=== PATIENT | female | born 1955 | race Caucasian/White ===

== ENCOUNTER 2023-07-09 13:01 | Emergency (ER) | payer OTHER, SELFPAY ==
[2023-07-09 13:02] VITALS: BP 155/84; PULSE 86; RESP 18; TEMP 35.8; O2SAT 100
--- NOTE | 2023-07-09 13:13 | CT_ITS ---
STUDY: CT ABDOMEN AND PELVIS WITHOUT CONTRAST REASON FOR EXAM: Female, 68 years old. Left flank pain. RADIATION DOSAGE (If Supplied By Facility): CTDIvol = ( 22.71 ) mGy, DLP = ( 1130.12 ) mGycm TECHNIQUE: Transaxial images were obtained from the dome of the diaphragm to the symphysis pubis without oral contrast, and without intravenous contrast. Sagittal and coronal images were reconstructed. Individualized dose optimization techniques were used for this CT. COMPARISON: None. FINDINGS: Mild degree of increased markings at the right lung base suggestive of atelectasis and/or scarring. Coronary artery calcification. Normal liver. There are surgical clips in the gallbladder fossa consistent with a prior cholecystectomy. Normal spleen. Normal pancreas. Normal bilateral adrenal glands. There are nonobstructive right intrarenal calculi. The largest is in the lower pole and measures 7.6 mm. There is evidence of a 4.5 mm calculus in the right ureteropelvic junction. Mild hydronephrosis. Nonobstructive left intrarenal calculi. The largest is in the lower pole and measures 15.5 mm. There is a small hiatal hernia. Normal small intestine. There are multiple colonic diverticula consistent with diverticulosis. The appendix is visualized and appears normal. Normal abdominal aorta. Normal inferior vena cava. Normal retroperitoneum. Normal urinary bladder. Normal abdominal wall. There are degenerative changes of the visualized lumbar spine. CT/Abdomen/Pelvis without Cont IMPRESSION: Nonobstructive bilateral intrarenal calculi. 4.5 mm calculus at the right ureteropelvic junction causing mild right hydronephrosis. Electronically Signed: Elbert Dior MD at 14:29 EDT ,
--- NOTE | 2023-07-09 13:14 | ED.VIS.GI ---
HPI HPI - GI History of Present Illness Chief Complaint: Flank Pain Detail of Chief Complaint: Sudden onset left flank pain 3 hours ago. Informant: patient Abdominal Pain/Flank Pain Onset: Today and Hours Context: Sudden Onset Timing: Continuous Location: Left Flank Current Severity: Moderate Maximum Severity: Severe Worsened by: Nothing Nausea/Vomiting/Emesis GI Symptom: Positive for Nausea; Negative for Vomiting Onset: Today Diarrhea/Melena/Hematochezia GI Symptom: Negative for Diarrhea, Melena or Hematochezia Associated Symptoms Associated Symptoms: Negative for Dysuria, Frequency or Hematuria Narrative Narrative: 68-year-old female sudden onset left flank pain about 3 hours ago. Now is wrapping around her left groin. History of a prior kidney stone which she said felt the same. Denies prior abdominal surgery. Denies dysuria or fever. Prior similar symptoms: Yes Recent Illness/Hospitalization: No PFSH PFSH Medical History (Updated 07/09/23 @ 13:36 by Antonietta Leyva) Anemia Breast cancer Depression Obesity Home Medications aspirin 325 mg tablet (Yoana Aspirin) 325 mg PO DAILY PRN pain 07/09/23 [History Last Taken Unknown] guaifenesin 1,200 mg tablet, extended release 12 hr (Mucinex) 1,200 mg PO Q12H 07/09/23 [History Last Taken Unknown] hydrocodone 5 mg-acetaminophen 300 mg tablet 1 tab PO Q4H PRN pain 2 days #12 tabs 07/09/23 [Rx Last Taken Unknown] Allergy/AdvReac Type Severity Reaction Status Date / Time minocycline Allergy Severe Anaphylaxis Verified 07/09/23 13:06 tetracycline Allergy Severe Anaphylaxis Verified 07/09/23 13:06 amoxicillin [From Augmentin] Allergy Intermediate Diarrhea Verified 07/09/23 13:06 clavulanic acid Allergy Intermediate Diarrhea Verified 07/09/23 13:06 [From Augmentin] diclofenac Allergy Intermediate Swelling Verified 07/09/23 13:06 naproxen Allergy Intermediate Hives Verified 07/09/23 13:06 oxaprozin [From Daypro] Allergy Intermediate dyspepsia Verified 07/09/23 13:06 piroxicam [From Feldene] Allergy Intermediate Swelling Verified 07/09/23 13:06 vicryl suture Allergy Intermediate infection Uncoded 07/09/23 13:06 Family History (Updated 07/09/23 @ 13:36 by Antonietta Leyva) Father Myocardial infarction Brother Bladder cancer Surgical History (Updated 07/09/23 @ 13:36 by Antonietta Leyva) Hx of cholecystectomy Previous back surgery Social History (Updated 07/09/23 @ 13:36 by Antonietta Leyva) household members: spouse housing: house current occupational status: employed Smoking Status: Never smoker ROS ROS ED ROS Narrative No flank pain. Nausea. Review of Systems ROS Unobtainable: Denies due to encephalopathy Constitutional Constitutional ED: Denies chills or fever(s) ENT ENT ED: Denies ear pain Cardiovascular Cardiovascular: Denies chest pain or palpitations Respiratory/Chest Respiratory/Chest: Denies cough or dyspnea Gastrointestinal Gastrointestinal: Reports abdominal pain and nausea; Denies constipation, diarrhea, melena or vomiting Genitourinary Genitourinary ED: Denies dysuria, hematuria or urinary frequency Musculoskeletal Musculoskeletal: Reports back pain; Denies arthralgias Integumentary Denies abscess or Abrasions Neurologic Neurologic: Denies headache(s) Psychiatric Psychiatric: Denies anxiety Endocrine Endocrinology: Denies polydipsia Hematologic/Lymphatic Hematologic/Lymphatic: Denies easy bleeding Allergic/Immunologic Allergic/Immunologic ED: Denies mouth swelling or tongue swelling EXAM Physical Exam Narrative Exam Narrative: 60-year-old female left flank pain. Complain pain. Vital signs stable afebrile. Does not look septic toxic. Other than pains in no distress. at bedside. H EENT exam unremarkable. Lungs clear. Heart regular rhythm no murmur rate about 85. Chest wall nontender. Abdomen soft nontender. No reproducible tenderness. No peritoneal signs. No pulsatile mass. Back nontender. Moving all 4 extremities. She is awake and alert. No focal motor deficits. Answering questions following commands. Const Vital Signs: 07/09/23 13:02 07/09/23 13:28 07/09/23 14:32 Temperature 96.5 F L Temperature Source Temporal Pulse Rate 86 75 87 Respiratory Rate 18 15 23 H Blood Pressure 155/84 H 155/73 H 154/79 H Blood Pressure Mean 107 100 104 Pulse Ox 100 95 96 Oxygen Delivery Method Room Air Room Air Room Air 07/09/23 14:45 Temperature Temperature Source Pulse Rate 87 Respiratory Rate 16 Blood Pressure 137/121 H Blood Pressure Mean 126 Pulse Ox 94 Oxygen Delivery Method Room Air Positive well nourished and well developed; Negative for cachectic or contractures General Appearance ED: well developed and NAD; Negative for cachectic, contractures or pallor Nutritional Appearance: Negative for cachectic HEENT Reports moist mucous membranes; Denies dry mucous membranes normocephalic and atraumatic; Negative for trauma or tenderness Mouth ED: No dry mucous membranes Mouth: No dry mucous membranes Eyes PERRL and EOMs intact bilaterally General Eye ED: Negative for pale conjunctiva or scleral icterus Neck no lymphadenopathy, supple and no JVD General: Negative for tenderness Carotids: Negative for other Lymph Lymphatic: Negative for other Resp normal respiratory effort and clear to auscultation bilaterally Effort and Inspection: Negative for respiratory distress Auscultation: Negative for rales, rhonchi or wheezes Cardio regular rate, regular rhythm, S1 normal heart sound, S2 normal heart sound and no murmurs Rate: Negative for bradycardia or tachycardic Rhythm: Negative for abnormal rhythm GI non-tender, non-distended and no masses Inspection: Negative for abdominal distention Auscultation: normoactive bowel sounds Palpation: soft; Negative for tender, guarding or rigid Back/Spine no CVA tenderness General Back: Negative for CVA tenderness Cervical Spine: Negative for cervical spine tenderness Thoracic Spine / Upper Back: Negative for thoracic spinal tenderness Lumbar Spine / Lower Back: Negative for lumbar spinal tenderness Coccyx: Negative for other Extremity full ROM General Extremety ED: Negative for edema or tenderness General Extremity: Negative for edema Neuro CN's II-XII intact bilaterally and moves all extremities Sensorium / Orientation: alert, oriented to person, oriented to place and oriented to time; Negative for orientation impaired, confused, lethargic or stuporous Motor Exam: strength 5/5 throughout Psych mental status grossly normal and thought process normal Appearance: Negative for other Attitude: No agitated Mood & Affect: Negative for depressed, anxious or tearful Skin no wounds General Skin Exam: Negative for jaundice or pallor Lesions: no lesions Rashes: no rashes Trauma: Negative for abrasion Image ED - Body Diagram Man: 1. Left flank pain. Not reproducible. MDM MDM MDM Narrative Medical decision making narrative: 68-year-old female with sudden onset left flank pain about 3 hours ago. History of a prior kidney stone. Exam benign. There is no reproducible abdominal pain. She will be treated with IV Dilaudid for pain and Zofran for nausea. CAT scan labs and urinalysis to be obtained. Repeat exam patient doing well at 3:18 PM. She has had a total of 2 mg of Dilaudid. Initially 1 mg and then 2 half milligrams doses. She is resting more comfortably. We discussed her test result so far and her CAT scan. CAT scan shows bilateral intrarenal stones but no acute stone causing her pain. She had not given us a urine sample yet she is trying to produce 1 at this time. Patient doing well at 3:57 PM. Urinalysis does not show any signs of infection just blood. The CAT scan does not show an acute ureteral calculi. She may have already passed it in her bladder. She will be discharged home. With patient. History & Record Review Discussion w/independent historian: Patient Additional record(s) reviewed:: No prior records Lab Data Attestation: I reviewed the patient's lab results. Lab results narrative: CBC unremarkable. White count of 5. H&H 12 and 42. Platelets 238. Electrolytes show a gap of 5. Normal BUN and creatinine of fifteen 0.7. Glucose 119. CAT scan shows bilateral intrarenal stones. I discussed specifically with the radiologist that he did not see anything acute on the left where she is having her pain. Urinalysis shows 10-25 red cells. No white cells. 1+ bacteria no nitrates. Labs: Laboratory Results - last 24 hr 07/09/23 07/09/23 13:27 15:20 WBC 5.5 RBC 4.24 Hgb 12.7 Hct 42.0 MCV 99.1 H MCH 30.0 MCHC 30.2 L RDW Std Deviation 49.9 H RDW Coeff of Mina 13.8 Plt Count 238 MPV 9.2 Immature Gran % (Auto) 0.200 Neut % (Auto) 68.9 Lymph % (Auto) 17.7 L [place] % (Auto) 7.7 Eos % (Auto) 4.2 Baso % (Auto) 1.3 H Absolute Neuts (auto) 3.8 Absolute Lymphs (auto) 0.97 Nucleated RBC % 0 Sodium 138 Potassium 4.3 Chloride 108 H Carbon Dioxide 25.0 Anion Gap 5 BUN 15 Creatinine 0.74 Estim Creat Clear Calc 52.36 Est GFR (MDRD) Af Amer 101 Est GFR (MDRD) Non-Af 83 BUN/Creatinine Ratio 20.4 H Glucose 119 H Calcium 8.6 Urine Color Yellow Urine Clarity Sl. Cloudy Urine pH 7.0 Ur Specific [place] 1.010 Urine Protein Negative Urine Glucose (UA) Normal Urine Ketones 15 H Urine Occult Blood 50 H Urine Nitrite Negative Urine Bilirubin Negative Urine Urobilinogen Normal Ur Leukocyte Esterase Negative Urine RBC 10-25 SEEN Urine WBC 0-5 SEEN Ur Squamous Epith Cells 0 SEEN Urine Bacteria 1+ Urine Mucus 0 SEEN Radiography Diagnostic Testing: Clinical Impression(s) from Imaging Studies Abdomen/Pelvis CT 07/09/23 13:13 IMPRESSION: Nonobstructive bilateral intrarenal calculi. 4.5 mm calculus at the right ureteropelvic junction causing mild right hydronephrosis. Electronically Signed: Elbert Dior MD at 14:29 EDT , Discharge Plan Triage Chief Complaint: Flank Pain ED Provider: Diego Arce Dx/Rx/DC Orders Clinical Impression: Left flank pain Instructions: ED Flank Pain, Uncertain Cause Prescriptions: New hydrocodone-acetaminophen 5-300 mg tablet 1 tab PO Q4H PRN (Reason: pain) 2 Days Qty: 12 0RF No Action Mucinex 1,200 mg tablet extended release 12hr 1,200 mg PO Q12H aspirin [Yoana Aspirin] 325 mg tablet 325 mg PO DAILY PRN (Reason: pain) Primary Care Provider: KHLOE WALTER Referrals: Doroteo Sharma MD [Med Staff - Active Staff] - As Needed NOT,DEFINED [Non-Staff] - Activity Restrictions/Additional Instructions: Follow-up with your primary care provider as needed and/or urology as needed. Your CAT scan showed a stone in each kidney but nothing causing the acute left flank pain which may have been a stone that you already passed in your bladder. Motrin and Tylenol for pain. Your urine was not infected. Disposition Disposition: Home, Self Care
[2023-07-09 13:28] VITALS: BP 155/73; PULSE 75; RESP 15; O2SAT 95; BMI 57.1
[2023-07-09 13:36] LABS: Absolute Lymphocyte Count 0.97 X10^3/uL (0.83-4.51); Absolute Neutrophil Count 3.8 X10^3/uL (2.0-7.7); Basophil# 0.07 X10^3/uL; Basophil% 1.3 % (0-1); Eosinophil# 0.23 X10^3/uL; Eosinophils% 4.2 % (0-5); Hemoglobin 12.7 g/dL (12.0-15.0); Lymphocyte # 0.97 X10^3/ul (0.83-4.51); Lymphocyte % 17.7 % (19-41); Mean Corp Hgb Conc 30.2 g/dL (32-36); Mean Corpuscular Volume 99.1 fL (81-99); Mean Platelet Vol. 9.2 fl (6.2-12.0); Monocyte# 0.42 X10^3/uL; Monocyte% 7.7 % (0-10); NRBC Flagged by Analyzer 0 % (0-5); Neutrophil # 3.77 X10^3/uL (2.7-7.7); Neutrophil % 68.9 % (47-70); Platelet Count 238 K/mm3 (150-450); RBC Distribution Width CV 13.8 % (11.6-14.6); RBC Distribution Width SD 49.9 fl (35.1-43.9); Red Blood Count 4.24 M/mm3 (4.2-5.4); White Blood Count 5.5 K/mm3 (4.4-11.0)
[2023-07-09 13:50] LABS: Anion Gap 5 (5-15); BUN 15 mg/dL (7-18); BUN/Creat Ratio 20.4 RATIO (10-20); Calcium,Total 8.6 mg/dL (8.5-10.1); Chloride 108 mmol/L (98-107); Creatinine, Serum 0.74 mg/dL (0.55-1.02); EST Glomerular Filtration Rate 83 mL/min (>60); Est Glom Filt Rate - Afr Amer 101 mL/min (>60); Estimated Creatinine Clearance 52.36 ml/min; Glucose 119 mg/dL (74-106); Potassium 4.3 mmol/L (3.5-5.1); Sodium Level 138 mmol/L (136-145)
[2023-07-09] MEDS: 0.9% Normal Saline 1,000 ML 1000 ML IV (14:01)
[2023-07-09] MEDS: Ondansetron 4 MG/2 ML Vial IV (14:02)
[2023-07-09] MEDS: HYDROmorphone 1 MG/ML Syringe IV (14:02)
[2023-07-09] MEDS: HYDROmorphone 0.5 MG/0.5 ML SYRINGE IV ×2 (14:03→14:43)
[2023-07-09 14:32] VITALS: BP 154/79; PULSE 87; RESP 23; O2SAT 96
[2023-07-09 14:45] VITALS: BP 137/121; PULSE 87; RESP 16; O2SAT 94
--- NOTE | 2023-07-09 15:12 | ED.RN ---
Patient O2 sats at 86%. Currently on 2L via [place].
[2023-07-09 15:30] LABS: Mucous, Urine 0 SEEN /hpf (<or=2+); Squamous Epithelial Cells - UA 0 SEEN /hpf (5-10)
[2023-07-09 15:43] LABS: Color, Urine Yellow (Yellow); Glucose, Dipstick Normal (Normal); Ketone-Dipstick 15 mg/dl (Negative); Leukocyte Esterase-Dipstick Negative /ul (Negative); Nitrite-Dipstick Negative (Negative); Occult Blood-Urine 50 /ul (Negative); Protein-Dipstick Negative (Negative); Urine Bilirubin Dipstick Negative (Negative); Urine Clarity Sl. Cloudy (Clear); Urine Urobilinogen Normal (Normal)
[2023-07-09 15:56] LABS: Bacteria 1+ /hpf (None Seen); Red Blood Cells-Urine 10-25 SEEN /hpf (0-5); White Blood Cells 0-5 SEEN /hpf (0-5)
[2023-07-09 16:19] VITALS: BP 149/72
== END 2023-07-09 16:20 | disposition home or self-care (01) ==
PROVIDERS: Emergency Provider Emergency Medicine; Visit Provider Emergency Medicine
DX: R10.9 Unspecified abdominal pain (principal); Z87.442 Personal history of urinary calculi
CPT/HCPCS: 74176; 80048; 81001; 85025; 96361; 96374; 96375; 96376; 99282; A4216; J2405